=== PATIENT | male | born 1990 | race Caucasian/White ===

== ENCOUNTER 2018-01-19 00:52 | Emergency (ER) | payer OTHER ==
[~2018-01-19] VITALS: Ht 190.5 cm; Wt 142.6 kg
[2018-01-19 00:56] VITALS: TEMP 36.8; Ht 190.5 cm; Wt 142.6 kg
[2018-01-19] MEDS ORDERED: DIPHTHERIA/TETANUS/PERTUSSIS 0.5 ML SYR/VIAL IM. ONE (01:15)
[2018-01-19] MEDS ORDERED: OXYCODONE/ACETAMINOPHEN 5-325 TAB PO STA (01:15)
[2018-01-19] MEDS ORDERED: IBUPROFEN 600 MG TAB PO STA (01:15)
[2018-01-19] MEDS ORDERED: ONDANSETRON 4MG OD TAB PO STA (01:18)
[2018-01-19] MEDS ORDERED: OXYC-737 PO (02:41)
[2018-01-19 02:44] VITALS: PULSE 96; O2SAT 97
[2018-01-19] MEDS ORDERED: ONDANSETRON HOME PACK 4MG OD TAB PO ONE (02:45)
[2018-01-19] MEDS ORDERED: OXYCODONE IR HOME PACK PO ONE (02:45)
[2018-01-19 02:48] VITALS: BP 133/93
--- NOTE | 2018-01-19 06:37 | DIAGNOSTIC IMAGING REPORT ---
HEAD WITHOUT CONTRAST (CT) CLINICAL HISTORY: 27 years-old Male with Facial contusion. Acute facial trauma with bruising TECHNIQUE: Multiple axial CT images of the head were obtained without contrast. A dose lowering technique was utilized adhering to the principles of ALARA. CT DOSE: 872.26 mGy.cm COMPARISON: CT maxillofacial same day. FINDINGS: No acute intracranial hemorrhage, midline shift, intracranial mass, hydrocephalus, territorial ischemia or abnormal extra-axial collection. The calvarium is intact. The paranasal sinuses, mastoid air cells, and middle ear cavities are clear. IMPRESSION: No acute intracranial abnormality. The above report was generated using voice recognition software. It may contain grammatical, syntax or spelling errors. Electronically signed by: Mikel Keene M.D. 01/19/2018 6:36 AM Dictated Date/Time: 01/19/2018 6:34 AM
--- NOTE | 2018-01-19 06:39 | DIAGNOSTIC IMAGING REPORT ---
R SHOULDER MIN 2 VIEWS ROUTINE CLINICAL HISTORY: right shoulder contusino COMPARISON: None. DISCUSSION: The bones and joint spaces appear intact. There is no evidence of fracture, dislocation or bony disease. There is no evidence for soft tissue swelling. IMPRESSION: Negative study. The above report was generated using voice recognition software. It may contain grammatical, syntax or spelling errors. Electronically signed by: Tevin Wan M.D. 01/19/2018 6:37 AM Dictated Date/Time: 01/19/2018 6:37 AM
--- NOTE | 2018-01-19 06:49 | DIAGNOSTIC IMAGING REPORT ---
CHEST 2 VIEWS ROUTINE CLINICAL HISTORY: Chest/face contusion trauma COMPARISON STUDY: No previous studies for comparison. FINDINGS: The bones soft tissues and hemidiaphragms are normal. The cardiomediastinal silhouette is normal. The lungs are clear. The pulmonary vasculature is normal. IMPRESSION: Negative chest. The above report was generated using voice recognition software. It may contain grammatical, syntax or spelling errors. Electronically signed by: Tevin Wan M.D. 01/19/2018 6:48 AM Dictated Date/Time: 01/19/2018 6:43 AM
--- NOTE | 2018-01-19 06:53 | DIAGNOSTIC IMAGING REPORT ---
KUB CLINICAL HISTORY: abd contusion trauma COMPARISON STUDY: No previous studies for comparison. FINDINGS: The soft tissues, psoas shadows, renal outlines and intestinal gas pattern appear normal. There is no evidence for bowel obstruction. No abnormal abdominal calcifications are seen. IMPRESSION: Normal study. The above report was generated using voice recognition software. It may contain grammatical, syntax or spelling errors. Electronically signed by: Tevin Wan M.D. 01/19/2018 6:51 AM Dictated Date/Time: 01/19/2018 6:51 AM
--- NOTE | 2018-01-19 07:26 | DIAGNOSTIC IMAGING REPORT ---
MAXILLOFACIAL CT CT DOSE: HISTORY: Facial contusion TECHNIQUE: Multiaxial CT images of the maxillofacial region were performed and reformatted in the coronal plane without the use of contrast. A dose lowering technique was utilized adhering to the principles of ALARA. COMPARISON: None. FINDINGS: The visualized cervical spine, skull base, pterygoid plates, nasal bones, lamina papyracea, orbital floors, mandible, and zygomatic arches are intact. No fractures. The orbits are unremarkable. IMPRESSION: No fractures within the maxillofacial region. Electronically signed by: Aaron Santacruz M.D. 01/19/2018 7:24 AM Dictated Date/Time: 01/19/2018 7:21 AM
--- NOTE | 2018-01-20 04:57 | EMERGENCY ROOM VISIT NOTE ---
History First contact with patient: 01:01 Chief Complaint: FACIAL PAIN/INJURY Stated Complaint: STRUCK IN FACE AND RT ARM WITH TIRE History of Present Illness The patient is a 27 year old male who presents to the Emergency Room with complaints of injury to his right upper chest and right side face that occurred about 1 hour ago. 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 The patient states that as he was inflating the tire, the tire ruptured, lifted off the ground, and struck him into the right side upper chest and facial area. The patient states that he had ringing in his ears, right worse than left, immediately after the episode. The patient has been able to breathe as normal and does not report lightheadedness or dizziness. He has multiple abrasions to his skin and is unsure of his last tetanus status. He does not have distinct laceration or active bleeding. The patient arrives with a family member who is a nurse. He is currently rating his discomfort a 5/10. He has not taken anything over-the- counter for his symptoms. Review of Systems More than 10 systems were reviewed and otherwise negative with the exception of history of present illness. Past Medical/Surgical History No chronic medical disease Social History Smoking Status: Never Smoker Occupation Status: employed Current/Historical Medications Scheduled Oxycodone Immediate Rel Tab (Roxicodone Ir), 1-2 TAB PO Q6 Physical Exam Vital Signs Date Time Temp Pulse Resp B/P (MAP) Pulse Ox O2 Delivery O2 Flow Rate FiO2 01/19/18 02:48 133/93 01/19/18 02:44 96 16 141/100 97 01/19/18 00:56 36.8 108 18 155/104 97 Room Air Physical Exam VITALS: Vitals are noted on the nurse's note and reviewed by myself. Vital signs stable. GENERAL: Well-developed, well-nourished, white male, who is in no acute distress and resting comfortably. Patient is cooperative with the examination. HEAD: Abrasions are appreciated across the right side facial structures towards the right side ear. This appears superficial in nature. There is no donald sign or raccoon eyes. EARS: External ear normal. External auditory canals clear, tympanic membranes pearly royal without erythema or effusion bilaterally. No hemotympanum EYES: Pupils equal round and reactive to light and accommodation. Conjunctivae without injection, sclerae without icterus. Extraocular movements intact. No hyphema. No corneal foreign body. NOSE: Patent, turbinates without inflammation or discharge. MOUTH: Mucous membranes moist. Tonsils are not enlarged. Pharynx without erythema, blood, or exudate. Uvula midline. Airway patent. NECK: Supple without nuchal rigidity. No lymphadenopathy. No thyromegaly. Cervical spine is nontender. HEART: Regular rate and rhythm without murmurs gallops or rubs. LUNGS: Clear to auscultation bilaterally without wheezes, rales or rhonchi. No retractions or accessory muscle use. CHEST WALL: There are superficial abrasions and contusion along the right side upper chest wall into the right shoulder. No crepitus or flail chest. ABDOMEN: Positive normal bowel sounds x 4. Soft, nontender, without masses or organomegaly. No guarding or rebound tenderness. MUSCULOSKELETAL: No muscle atrophy, erythema, or edema noted. Full range of motion in all extremities. No tenderness to palpation. Normal gait. Strength 5/5 throughout. NEURO: Patient was alert and oriented to person place and time. CN II through XII grossly intact. No focal neurological deficits. Deep tendon reflexes 2+ throughout. Medical Decision & Procedures ER Provider Diagnostic Interpretation: HEAD WITHOUT CONTRAST (CT) CLINICAL HISTORY: 27 years-old Male with Facial contusion. Acute facial trauma with bruising TECHNIQUE: Multiple axial CT images of the head were obtained without contrast. A dose lowering technique was utilized adhering to the principles of ALARA. CT DOSE: 872.26 mGy.cm COMPARISON: CT maxillofacial same day. FINDINGS: No acute intracranial hemorrhage, midline shift, intracranial mass, hydrocephalus, territorial ischemia or abnormal extra-axial collection. The calvarium is intact. The paranasal sinuses, mastoid air cells, and middle ear cavities are clear. IMPRESSION: No acute intracranial abnormality. MAXILLOFACIAL CT CT DOSE: HISTORY: Facial contusion TECHNIQUE: Multiaxial CT images of the maxillofacial region were performed and reformatted in the coronal plane without the use of contrast. A dose lowering technique was utilized adhering to the principles of ALARA. COMPARISON: None. FINDINGS: The visualized cervical spine, skull base, pterygoid plates, nasal bones, lamina papyracea, orbital floors, mandible, and zygomatic arches are intact. No fractures. The orbits are unremarkable. IMPRESSION: No fractures within the maxillofacial region. CHEST 2 VIEWS ROUTINE CLINICAL HISTORY: Chest/face contusion trauma COMPARISON STUDY: No previous studies for comparison. FINDINGS: The bones soft tissues and hemidiaphragms are normal. The cardiomediastinal silhouette is normal. The lungs are clear. The pulmonary vasculature is normal. IMPRESSION: Negative chest. R SHOULDER MIN 2 VIEWS ROUTINE CLINICAL HISTORY: right shoulder contusino COMPARISON: None. DISCUSSION: The bones and joint spaces appear intact. There is no evidence of fracture, dislocation or bony disease. There is no evidence for soft tissue swelling. IMPRESSION: Negative study. KUB CLINICAL HISTORY: abd contusion trauma COMPARISON STUDY: No previous studies for comparison. FINDINGS: The soft tissues, psoas shadows, renal outlines and intestinal gas pattern appear normal. There is no evidence for bowel obstruction. No abnormal abdominal calcifications are seen. IMPRESSION: Normal study. Medications Administered Medications (Trade) Dose Ordered Sig/Gem Route Start Time Stop Time Status Last Admin Dose Admin Ibuprofen (Motrin Tab) 600 mg NOW STAT PO 01/19/18 01:15 01/19/18 01:17 DC 01/19/18 01:42 600 MG Diphtheria/ Pertussis/Tetanus Vacc (Adacel Inj) 0.5 ml ONCE ONCE IM. 01/19/18 01:15 01/19/18 01:17 DC 01/19/18 01:43 0.5 ML Oxycodone HCl (Roxicodone Immediate Rel 5MG Home Pack) 1 homepack UD ONCE PO 01/19/18 02:45 01/19/18 02:46 DC 01/19/18 02:47 1 HOMEPACK Ondansetron HCl (ZOFRAN ODT 4MG Home Pack) 1 homepack UD ONCE PO 01/19/18 02:45 01/19/18 02:46 DC 01/19/18 02:47 1 HOMEPACK ED Course Physical exam and history were performed. Nursing notes, EMR, and Medication List were personally reviewed. Patient appears to have suffered contusion injuries to his right side chest and face after a tire exploded while he was inflating it. The patient has multiple contusion and superficial abrasion injuries. I did offer him pain medication and he accepts ibuprofen and Tylenol which was provided. I did elect form CT scans of his head and face, as well as plain films of the other areas where injury is noted. The patient's CT scans are as above and were reviewed without acute findings. The x-rays are also reviewed by myself and radiology as showing no acute fracture, dislocation, or other traumatic injuries. The patient was monitored for several hours here in the emergency department without any worsening or evolution of his symptoms. Overall he appears well for discharge home. He will be given a short course of pain medication and instructions to follow with his primary care physician in the next few days for recheck. He was otherwise invited back to the ER with any new, worsening, or concerning symptoms. The chart was completed utilizing [employer] Speech Voice Recognition Software. Grammatical errors, random word insertions, pronoun errors, and incomplete sentences are an occasional consequence of this system due to software limitations, ambient noise, and hardware issues. Any formal questions or concerns about the content, text, or information contained within the body of this dictation should be directly addressed to the provider for clarification. . Medical Decision Differential diagnosis includes, but is not limited to: Sprain, strain, fracture , dislocation, subluxation,, and other traumatic etiologies were considered. Impression Primary Impression: Contusion of face Additional Impressions: Superficial abrasion Chest wall contusion Departure Information Dispostion Home / Self-Care Condition GOOD Prescriptions Oxycodone Immediate Rel Tab (ROXICODONE IR) 5 Mg Tab 1-2 TAB PO Q6 for Pain, #15 TAB Initial treatment Prov: Elver Avery PA-C 01/19/18 Forms HOME CARE DOCUMENTATION FORM, IMPORTANT VISIT INFORMATION Patient Instructions My [facility] Additional Instructions You were seen and evaluated today on an emergency basis only. This is not a substitute for, or an effort to provide, complete comprehensive medical care. It is not possible to recognize and treat all injuries or illnesses in a single emergency department visit. For this reason it is recommended that you followup with your primary care physician on Monday for ongoing care and evaluation. For baseline pain relief you may alternate ibuprofen and acetaminophen every 4 hours for pain control. Take 600 mg ibuprofen (Advil) and then 4 hours later take 1000 mg acetaminophen (Tylenol). Do not take more than 3000 mg acetaminophen in a single day. Oxycodone (OxyIR) 5mg: Take ONE or TWO pills by mouth every SIX hours for breakthrough pain. Avoid alcohol, operating machinery or dangerous equipment, working on ladders or roofs, DRIVING, or situations where being under the influence may be dangerous. It is recommended to use an [id number] stool softener such as Colace, 100mg twice daily while taking this medication to avoid constipation. Zofran 4 mg ODT (homepack): Dissolve 1 tablet every 6 hrs as needed for nausea. You are welcome to return to the emergency department anytime with new, worsening, or concerning symptoms. Problem Qualifiers
== END 2018-01-19 02:48 | disposition home or self-care (01) ==
LOC: C.EDB 00:54
DX: S00.81XA Abrasion of other part of head, initial encounter (principal); S20.311A Abrasion of right front wall of thorax, initial encounter; S20.211A Contusion of right front wall of thorax, initial encounter; Z23 Encounter for immunization; W37.8XXA Explosion and rupture of other pressurized tire, pipe or hose, initial encounter; Y93.89 Activity, other specified